=== PATIENT | female | born 1925 | race Caucasian/White ===

== ENCOUNTER 2016-05-03 09:55 | Emergency (ER) | payer OTHER ==
--- NOTE | 2016-05-03 10:08 | PDOC ---
History of Present Illness - General Chief Complaint: Lightheaded Stated Complaint: DIZZINESS Time Seen by Provider: 05/03/16 10:08 History Source: Patient Exam Limitations: No Limitations - History of Present Illness Initial Comments: 89 yo F history HTN presents with vertiginous symptoms x1 day. She states that she got up quickly this morning, went to answer the door, developed sudden onset of dizziness, nausea. She has not had any vomiting. She c/o mild occipital headache. No weakness, numbness. No recent head injuries. Past History - Past Medical History Allergies/Adverse Reactions: Allergies Allergy/AdvReac Type Severity Reaction Status Date / Time No Known Allergies Allergy Verified 05/03/16 10:08 Home Medications: Ambulatory Orders Aspirin Coated [Ecotrin -] 81 mg PO DAILY 05/03/16 Losartan Potassium [Cozaar] 100 mg PO DAILY 05/03/16 Meclizine HCl [Antivert -] 25 mg PO TID PRN #21 tablet 05/03/16 Ondansetron [Zofran Odt -] 4 mg SL TID PRN #21 od.tablet 05/03/16 Vit C/Vit E/[place]/Min/[place]-3 [Ocuvite Softgel] 1 each PO DAILY 05/03/16 Review of Systems - Review of Systems Able to Perform ROS?: Yes Comments:: GENERAL/CONSTITUTIONAL: No fever or chills. No weakness. +Dizziness HEAD, EYES, EARS, NOSE AND THROAT: No change in vision. No ear pain or discharge. No sore throat. CARDIOVASCULAR: No chest pain or shortness of breath. RESPIRATORY: No cough, wheezing, or hemoptysis. GASTROINTESTINAL: No nausea, vomiting, diarrhea or constipation. GENITOURINARY: No dysuria, frequency, or change in urination. MUSCULOSKELETAL: No joint or muscle swelling or pain. No neck or back pain. SKIN: No rash NEUROLOGIC: No headache, loss of consciousness, or change in strength/ sensation. +Vertigo ENDOCRINE: No increased thirst. No abnormal weight change. HEMATOLOGIC/LYMPHATIC: No anemia, easy bleeding, or history of blood clots. ALLERGIC/IMMUNOLOGIC: No hives or skin allergy. *Physical Exam - Physical Exam Comments: GENERAL: Awake, alert, and fully oriented, in no acute distress HEAD: No signs of trauma EYES: PERRLA, EOMI, sclera anicteric, conjunctiva clear ENT: Auricles normal inspection, hearing grossly normal, nares patent, oropharynx clear without exudates. Moist mucosa. L TM normal in appearance. R TM with clear effusion. NECK: Normal ROM, supple, no lymphadenopathy, JVD, or masses LUNGS: Breath sounds equal, clear to auscultation bilaterally. No wheezes, and no crackles HEART: Regular rate and rhythm, normal S1 and S2, no murmurs, rubs or gallops ABDOMEN: Soft, nontender, normoactive bowel sounds. No guarding, no rebound. No masses EXTREMITIES: Normal range of motion, no edema. No clubbing or cyanosis. No cords, erythema, or tenderness NEUROLOGICAL: Cranial nerves II through XII grossly intact. Normal speech. Motor and sensation intact. SKIN: Warm, Dry, normal turgor, no rashes or lesions noted. ED Treatment Course - LABORATORY CBC & Chemistry Diagram: 05/03/16 11:05 05/03/16 11:05 Medical Decision Making - Medical Decision Making 05/03/16 12:28 Sitting upright, able to tolerate tray of food PO. Reports significant improvement in her symptoms. Labs show signs of mild dehydration, otherwise no alarming findings. CTH no acute findings. Stable for DC home. *DC/Admit/Observation/Transfer Diagnosis at time of Disposition: Vertigo - Discharge Dispostion Disposition: HOME Condition at time of disposition: Good Admit: No - Prescriptions Prescriptions: Meclizine HCl [Antivert -] 25 mg PO TID PRN #21 tablet PRN Reason: Vertigo Ondansetron [Zofran Odt -] 4 mg SL TID PRN #21 od.tablet PRN Reason: Nausea And/Or Vomiting - Referrals Referrals: Arvin Marie [Primary Care Provider] - - Patient Instructions Printed Discharge Instructions: DI for Vertigo
[2016-05-03 10:20] VITALS: TEMP 97.4; BMI 16.9
[2016-05-03 10:43] LABS: URINE APPEARANCE Clear; URINE BILIRUBIN Negative (NEGATIVE); URINE BLOOD Trace-lysed (NEGATIVE); URINE GLUCOSE (UA) Negative (NEGATIVE); URINE KETONE Negative (NEGATIVE); URINE LEUK ESTERASE Negative (NEGATIVE); URINE NITRITE Negative (NEGATIVE); URINE UROBILINOGEN 0.2 E.U/dl (0.2-1.0)
[2016-05-03 10:44] LABS: URINE COLOR YELLOW; URINE PROTEIN 1+ (NEGATIVE)
[2016-05-03] MEDS ORDERED: SODIUM CHLORIDE 1,000 ML IV STA (10:58)
[2016-05-03] MEDS ORDERED: ONDANSETRON 4 MG/2 ML VIAL IVPUSH ONE (10:58)
[2016-05-03] MEDS ORDERED: ONDANSETRON 4 MG/2 ML VIAL ONE (11:13)
[2016-05-03 11:18] VITALS: BP 170/60
[2016-05-03 11:18] LABS: BASOPHIL 3.5 % (0-2.0); EOSINOPHIL 1.8 % (0-4.5); MCHC 34.4 g/dl (32.0-36.0); MEAN CELL VOLUME 93.2 fl (80-96); MEAN PLT VOLUME 8.9 fl (7.5-11.1); NEUTROPHILS 61.3 % (42.8-82.8); PLATELET COUNT 185 K/MM3 (134-434); RDW 12.6 % (11.6-15.6); WHITE BLOOD COUNT 4.4 K/mm3 (4.0-10.0)
[2016-05-03 11:19] VITALS: PULSE 63
[2016-05-03 11:34] LABS: ALBUMIN 3.7 g/dl (3.5-5.0); ALK PHOS 46 U/L (32-92); ANION GAP 4 (8-16); BILIRUBIN,TOTAL 1.3 mg/dl (0.2-1.0); CALCIUM 8.8 mg/dl (8.4-10.2); CO2 25 mmol/L (22-28); CREATININE 0.7 mg/dl (0.6-1.3); GLUCOSE,RANDOM 106 mg/dl (74-106); SGOT/AST 26 U/L (10-42); TOT PROT 6.5 g/dl (6.4-8.3)
[2016-05-03 11:45] LABS: SGPT/ALT 10 U/L (10-40)
[2016-05-03 12:29] LABS: URINE RBC 0-2 /hpf (0-3)
[2016-05-03 12:30] LABS: URINE BACTERIA FEW /hpf (NEGATIVE); URINE WBC 0-3 (3-5)
--- NOTE | 2016-05-04 14:20 | EKG ---
Test Reason : Blood Pressure : / mmHG Vent. Rate : 062 BPM Atrial Rate : 062 BPM P-R Int : 168 ms QRS Dur : 090 ms QT Int : 418 ms P-R-T Axes : 072 071 058 degrees QTc Int : 424 ms NORMAL SINUS RHYTHM INCOMPLETE RBBB POSSIBLE LEFT ATRIAL ENLARGEMENT NO PREVIOUS ECGS AVAILABLE Confirmed by MD MURPHY MARJORY ([id number]) on 05/04/2016 2:20:06 PM Referred By: JOYCE RIOS Confirmed By:LEI MURPHY MD
== END 2016-05-03 12:34 | disposition home or self-care (01) ==
LOC: FER 09:55
PROC: 3E033GC Introduction of Other Therapeutic Substance into Peripheral Vein, Percutaneous Approach (ICD-10-PCS; principal; 2016-05-03)
PROC: 3E0337Z Introduction of Electrolytic and Water Balance Substance into Peripheral Vein, Percutaneous Approach (ICD-10-PCS; 2016-05-03)
DX: R42 Dizziness and giddiness (principal); I10 Essential (primary) hypertension; Z79.82 Long term (current) use of aspirin
CPT/HCPCS: 36415; 70450-TC; 80053; 81003; 81015; 85025; 87086; 93005; 99285-25